=== PATIENT | male | born 1985 | race African-American/Black ===

== ENCOUNTER 2016-11-23 16:54 | Emergency (ER) | payer OTHER ==
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
[2016-11-23 17:14] VITALS: BP 133/91; BMI 22.5
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
[2016-11-23] MEDS ORDERED: XYLOCAINE 1% and EPINEPHRINE 1:100,000 ONE (18:17)
[2016-11-23] MEDS ORDERED: NS IRRIGATION 1000 ML 1,000 ML ONE (18:35)
[2016-11-23] MEDS ORDERED: ADACEL TDaP IM ONE ×2 (18:50→18:51)
== END 2016-11-23 19:01 ==
LOC: ER 17:14
PROC: 0XQJ0ZZ Repair Right Hand, Open Approach (ICD-10-PCS; principal; 2016-11-23)
DX: S61.411A Laceration without foreign body of right hand, initial encounter (principal); X58.XXXA Exposure to other specified factors, initial encounter; Y92.89 Other specified places as the place of occurrence of the external cause
CPT/HCPCS: 12002; 73130; 90471; 99282; J2001